=== PATIENT | male | born 1970 | race Caucasian/White ===

== ENCOUNTER 2021-01-26 17:13 | Emergency (ER) | payer MEDICAID ==
[~2021-01-26] VITALS: Ht 170.2 cm; Wt 65.0 kg
[2021-01-26 18:20] LABS: BASOPHILS % (AUTO) 1 % (0-1); EOSINOPHILS % (AUTO) 5 % (1-7); LYMPHOCYTES % (AUTO) 27 % (22-44); MEAN CORPUSCULAR HEMOGLOBIN 35.7 pg (27.5-34.5); MEAN CORPUSCULAR HGB CONC 33.6 g/dL (33.2-36.2); MEAN PLATELET VOLUME 8.4 fL (7.4-10.4); MONOCYTES % (AUTO) 16 % (2-9); NEUTROPHILS % (AUTO) 52 % (42-75); PLATELET COUNT 66 x10^3/uL (130-400); RED BLOOD COUNT 3.68 x10^6/uL (4.38-5.82); RED CELL DISTRIBUTION WIDTH 16.5 % (9.4-14.8)
[2021-01-26 18:23] LABS: ALBUMIN 2.2 g/dL (3.4-5.0); ANION GAP 6 mmol/L (5-15); CALCIUM 7.9 mg/dL (8.5-10.1); CHLORIDE 105 mmol/L (98-107)
[2021-01-26 18:28] LABS: ALANINE AMINOTRANSFERASE 45 U/L (12-78); ALKALINE PHOSPHATASE 154 U/L (45-117); BILIRUBIN,TOTAL 8.2 mg/dL (0.2-1.0); CREATININE 0.39 mg/dL (0.7-1.3)
--- NOTE | 2021-01-26 21:05 | NUR ---
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
[2021-01-26 22:21] VITALS: BP 126/90
== END 2021-01-26 22:24 | disposition home or self-care (01) ==
LOC: ED 17:43
DX: K74.60 Unspecified cirrhosis of liver (principal); R60.0 Localized edema; R94.5 Abnormal results of liver function studies; R07.89 Other chest pain; J45.909 Unspecified asthma, uncomplicated; F17.200 Nicotine dependence, unspecified, uncomplicated
CPT/HCPCS: 36415; 71045; 80053; 83880; 85025; 99284